=== PATIENT | female | born 1995 | race Caucasian/White ===

== ENCOUNTER 2016-08-20 10:16 | Emergency (ER) | payer OTHER ==
[~2016-08-20] VITALS: Ht 167.6 cm; Wt 61.3 kg
[2016-08-20 10:25] VITALS: TEMP 37; Ht 167.6 cm; Wt 61.3 kg
[2016-08-20] MEDS ORDERED: DiphenhydrAMINE HCL 50 MG/ML VIAL IV STA (10:35)
[2016-08-20] MEDS ORDERED: SODIUM CHLORIDE 0.9% 1000ML 1,000 ML IV STA (10:35)
[2016-08-20] MEDS ORDERED: PROCHLORPERAZINE 5 MG/ML 2 ML VIAL IV STA (10:35)
[2016-08-20] MEDS ORDERED: KETOROLAC TROMETHAMINE 30 MG/ML VIAL IV STA (10:35)
--- NOTE | 2016-08-20 10:43 | EMERGENCY ROOM VISIT NOTE ---
History Report prepared by Liliibe: Francisco Hurst Under the Supervision of: Dr. Heather Brown M.D. First contact with patient: 10:31 Chief Complaint: HEADACHE Stated Complaint: MIGRAINE, BLACK SPOTS, NAUSEA History of Present Illness The patient is a 21 year old female who presents to the Emergency Room with complaints of a persistent migraine headache that started three days ago. The head hurts in the front, back, and bilateral temples. The patient also notes black spots in her vision and some mild photophobia. The patient has lost her vision before with headaches. She is also nauseous but has not vomited. The patient denies any fevers. This feels like a typical migraine for her except that is is persisting for longer. The patient has had [address] scan of her head. She goes to a headache clinic at home. The patient has migraine medications which have not helped. She denies the possibility of secondary to IUD use. Source of History: patient Onset: three days ago Position: head Quality: other (migraine) Timing: other (persistent) Associated Symptoms: + nausea, No fevers, No vomiting Review of Systems See HPI for pertinent positives & negatives. A total of 10 systems reviewed and were otherwise negative. Past Medical & Surgical Medical Problems: (1) Torn meniscus Social History Problems: (1) IUD (intrauterine device) in place Family History Cancer Heart disease Hypertension Social History Smoking Status: Never Smoker Housing Status: lives with roommate Occupation Status: [employer] student Current/Historical Medications Scheduled Topiramate (Trokendi Xr), 25 MG PO QAM Scheduled PRN Diclofenac Potassium (Diclofenac Potassium), 1 TAB PO UD PRN for Migraine [Re/Max ], 1 TAB PO UD PRN for Migraine Allergies Coded Allergies: No Known Allergies (Unverified , 08/20/16) Physical Exam Vital Signs Date Time Temp Pulse Resp B/P Pulse Ox O2 Delivery O2 Flow Rate FiO2 08/20/16 12:30 62 14 111/69 99 08/20/16 11:30 94 16 104/68 99 Room Air 08/20/16 11:30 64 08/20/16 10:25 37.0 65 18 121/78 98 Room Air Physical Exam Vital signs reviewed. General: Well-appearing female, in no significant distress. HEENT: No scleral icterus, PERRLA, neck supple. Atraumatic. Neck: No meningeal signs. Cardiovascular: Regular rate and rhythm, no extra sounds. Pulmonary: Clear to auscultation bilaterally, normal work of breathing. Abdomen: Soft, nontender, nondistended, positive bowel sounds. Musculoskeletal: Atraumatic, no peripheral edema. Neurologic: Patient awake alert and oriented x 3, full strength in all 4 extremities. Cranial nerves 2 through 12 grossly intact. Skin: Warm, dry, no rash Medical Decision & Procedures Laboratory Results 08/20/16 10:48 Red Blood Count 4.45, Mean Corpuscular Volume 89.4, Mean Corpuscular Hemoglobin 31.0, Mean Corpuscular Hemoglobin Concent 34.7, Mean Platelet Volume 10.2, Neutrophils (%) (Auto) 61.5, Lymphocytes (%) (Auto) 30.2, Monocytes (%) (Auto) 7.1, Eosinophils (%) (Auto) 0.7, Basophils (%) (Auto) 0.3, Neutrophils # (Auto) 3.65, Lymphocytes # (Auto) 1.79, Monocytes # (Auto) 0.42, Eosinophils # (Auto) 0.04, Basophils # (Auto) 0.02 08/20/16 10:48 Test 08/20/16 10:48 White Blood Count 5.93 K/uL (4.8-10.8) Red Blood Count 4.45 M/uL (4.2-5.4) Hemoglobin 13.8 g/dL (12.0-16.0) Hematocrit 39.8 % (37-47) Mean Corpuscular Volume 89.4 fL (80-100) Mean Corpuscular Hemoglobin 31.0 pg (25-34) Mean Corpuscular Hemoglobin Concent 34.7 g/dl (32-36) Platelet Count 215 K/uL (130-400) Mean Platelet Volume 10.2 fL (7.4-10.4) Neutrophils (%) (Auto) 61.5 % Lymphocytes (%) (Auto) 30.2 % Monocytes (%) (Auto) 7.1 % Eosinophils (%) (Auto) 0.7 % Basophils (%) (Auto) 0.3 % Neutrophils # (Auto) 3.65 K/uL (1.4-6.5) Lymphocytes # (Auto) 1.79 K/uL (1.2-3.4) Monocytes # (Auto) 0.42 K/uL (0.11-0.59) Eosinophils # (Auto) 0.04 K/uL (0-0.5) Basophils # (Auto) 0.02 K/uL (0-0.2) RDW Standard Deviation 40.2 fL (36.4-46.3) RDW Coefficient of Variation 12.4 % (11.5-14.5) Immature Granulocyte % (Auto) 0.2 % Immature Granulocyte # (Auto) 0.01 K/uL (0.00-0.02) Anion Gap 8.0 mmol/L (3-11) Est Creatinine Clear Calc Drug Dose 121.4 ml/min Estimated GFR () 143.9 Estimated GFR (Non- 124.2 BUN/Creatinine Ratio 15.0 (10-20) Calcium Level 9.1 mg/dl (8.5-10.1) Total Bilirubin 0.5 mg/dl (0.2-1) Direct Bilirubin 0.1 mg/dl (0-0.2) Aspartate Amino Transf (AST/SGOT) 11 U/L (15-37) Alanine Aminotransferase (ALT/SGPT) 16 U/L (12-78) Alkaline Phosphatase 62 U/L (45-117) Total Protein 6.9 gm/dl (6.4-8.2) Albumin 3.9 gm/dl (3.4-5.0) Laboratory results per my review. Medications Administered Medications (Trade) Dose Ordered Sig/Ollie Route Start Time Stop Time Status Last Admin Dose Admin Ketorolac Tromethamine (Toradol Inj) 30 mg NOW STAT IV 08/20/16 10:35 08/20/16 10:37 DC 08/20/16 11:03 30 MG Prochlorperazine Edisylate (Compazine Inj) 10 mg NOW STAT IV 08/20/16 10:35 08/20/16 10:37 DC 08/20/16 11:02 10 MG Diphenhydramine HCl 25 mg 25 mg NOW STAT IV 08/20/16 10:35 08/20/16 10:37 DC 08/20/16 11:03 25 MG Sodium Chloride (Nss 1000ml) 1,000 ml @ 999 mls/hr Q1H1M STAT IV 08/20/16 10:35 3/18/17 11:35 DC 08/20/16 11:03 999 MLS/HR ED Course 1033: Past medical records reviewed. The patient was evaluated in room B9. A complete history and physical examination was performed. 1035: NSS 1000 ml @ 999 mls/hr, Benadryl 25 mg IV, Compazine 10 mg IV, Toradol 30 mg IV. 1210: Reassessed the patient. She is feeling better and would like to go home. Medical Decision Differential diagnosis: Intracranial hemorrhage, intracranial mass, migraine headache, tension headache , sinusitis, meningitis This patient was evaluated and appeared to be in no significant distress. IV access was obtained and laboratory work was drawn. Patient's physical exam is fairly unrevealing. She was medicated with IV Toradol 30 mg, IV Benadryl 25 mg of IV Compazine 10 mg. She was hydrated with normal saline solution. The patient had significant resolution of her symptoms. I do not believe that imaging is warranted as the patient has experienced this headache in the past. She will follow-up with her doctor for reevaluation this week and return to the ER for worsening of symptoms or any medical concerns. Impression Primary Impression: Migraine Scribe Attestation The scribe's documentation has been prepared under my direction and personally reviewed by me in its entirety. I confirm that the note above accurately reflects all work, treatment, procedures, and medical decision making performed by me. Departure Information Dispostion Home / Self-Care Referrals No Doctor, Assigned (PCP) Forms HOME CARE DOCUMENTATION FORM, IMPORTANT VISIT INFORMATION Patient Instructions My [facility] Additional Instructions Diagnosis: Migraine SLOAN Drink plenty of fluids. Follow up with your doctor this week for reevaluation. Return to the emergency for worsening of symptoms or any medical concerns. Problem Qualifiers Primary Impression: Migraine Migraine type: with aura Status migrainosus presence: with status migrainosus Intractability: intractable Qualified Codes: G43.111 - Migraine with aura, intractable, with status migrainosus
[2016-08-20] MEDS ORDERED: [UNRECOGNIZED DRUG - OTHER] PO (10:49)
[2016-08-20] MEDS ORDERED: TOPI1CAP PO (10:49)
[2016-08-20] MEDS ORDERED: CTF50 PO (10:49)
[2016-08-20 11:01] LABS: BASO % 0.3 %; BASO ABS # 0.02 K/uL (0-0.2); COMPLETE YES; EOS % 0.7 %; HEMATOCRIT 39.8 % (37-47); IG% 0.2 %; LYMPH % 30.2 %; LYMPH ABS # 1.79 K/uL (1.2-3.4); MEAN CELL VOLUME 89.4 fL (80-100); MEAN CORPUSCULAR HGB CONC 34.7 g/dl (32-36); MEAN PLATELET VOLUME 10.2 fL (7.4-10.4); MONO % 7.1 %; NEUT % 61.5 %; PLATELET COUNT 215 K/uL (130-400); RED BLOOD COUNT 4.45 M/uL (4.2-5.4); WHITE BLOOD COUNT 5.93 K/uL (4.8-10.8)
[2016-08-20 11:20] LABS: CALCIUM 9.1 mg/dl (8.5-10.1); CREATININE 0.68 mg/dl (0.60-1.20); POTASSIUM 3.4 mmol/L (3.5-5.1)
[2016-08-20 12:30] VITALS: BP 111/69; PULSE 62; O2SAT 99
== END 2016-08-20 12:31 | disposition home or self-care (01) ==
LOC: C.EDB 10:18
DX: G43.909 Migraine, unspecified, not intractable, without status migrainosus (principal); Z80.9 Family history of malignant neoplasm, unspecified; Z82.49 Family history of ischemic heart disease and other diseases of the circulatory system